=== PATIENT | female | born 1970 | race Caucasian/White ===

== ENCOUNTER 2016-11-15 15:29 | Emergency (ER) | payer MEDICAID, OTHER ==
[2016-11-15 15:38] VITALS: RESP 18; TEMP 98; O2SAT 97
--- NOTE | 2016-11-15 15:55 | EDPHY ---
H & P Stated Complaint: pt would like RX refil of imatrex for AGUSTIN that started this am HPI/ROS: CHIEF COMPLAINT: Migraine headache HISTORY OF PRESENT ILLNESS: This is a generally healthy 45-year-old female with a history of migraine headaches. No recent change in her migraines. She has been evaluated for them in the past, including brain MRI. She takes Imitrex orally and this is usually sufficient treatment. However, she ran out of her Imitrex so has been unable to take any. She reports photophobia. She has nausea but no vomiting. She has some mild left facial numbness that is typical for her with her headaches. The pain begins in her neck and radiates around the left side of her head. The pain is dull. She has not had fever. There is nothing unusual about this headache. REVIEW OF SYSTEMS: A ten point review of systems was performed and is negative with the exception of the items mentioned in the HPI. Source: Patient Exam Limitations: No limitations - Personal History LMP (Females 10-55): Now Current Tetanus Diphtheria and Acellular Pertussis (TDAP): Yes - Medical/Surgical History Hx Asthma: No Hx Chronic Respiratory Disease: No Hx Diabetes: No Hx Cardiac Disease: No Hx Renal Disease: No Hx Cirrhosis: No Hx Alcoholism: No Hx HIV/AIDS: No Hx Splenectomy or Spleen Trauma: No Other PMH: migraines, also being tested for ankylosing spondylosis, - Family History Significant Family History: No pertinent family hx - Social History Additional Social History: She does not use tobacco products. She does not drink alcohol. She has a 4- year-old. - Physical Exam Exam: General Appearance: Alert. Vital signs reviewed. Eyes: Pupils equal and round, no conjunctival injection, no discharge. Anicteric. ENT, Mouth: Mucous membranes are moist, no oropharyngeal erythema or edema. Neck: No lymphadenopathy, supple. Respiratory: Lungs are clear to auscultation; no wheezes, rales, or rhonchi. Cardiovascular: Regular rate and rhythm; no murmur, rub, or gallop. Gastrointestinal: Abdomen is soft and nontender, no masses or organomegaly, bowel sounds normal. Skin: Warm and dry, no rashes on exposed skin, normal color. Back: Nontender to palpation over the thoracolumbar spine. No CVAT. Extremities: No lower extremity edema, no calf tenderness or swelling. Neurological: Alert and oriented. Moving all four extremities easily and equally. Cranial nerves II through XII are examined and are intact with the exception of slight decrease in light touch over the left face (visual acuity not tested). Strength is 5 over 5 bilaterally with testing of all major motor groups. Sensation is intact to light touch over all 4 extremities. Deep tendon reflexes are 2+ in the biceps and knees bilaterally. Gait is normal. Psychiatric: Normal affect. Constitutional: Initial Vital Signs Temperature (C) 36.6 C 11/15/16 15:36 Heart Rate 78 11/15/16 15:36 Respiratory Rate 18 11/15/16 15:36 Blood Pressure 122/89 H 11/15/16 15:36 O2 Sat (%) 97 11/15/16 15:36 O2 Delivery Mode Room Air Allergies/Adverse Reactions: Sulfa (Sulfonamide Antibiotics) Allergy (Verified 08/24/13 22:24) Home Medications: Medication Instructions Recorded Cymbalta 08/24/13 Imitrex 11/15/16 Sumatriptan Succinate [Imitrex] 100 mg PO DAILY PRN #20 tablet 11/15/16 Medical Decision Making ED Course/Re-evaluation: 45-year-old with migraine headache that is typical for her. She usually takes Imitrex but has run out of this medication. She will be given a dose of Imitrex 6 mg subcutaneously and also Zofran 0DT in the emergency department. A prescription will be provided. She does not wish or require further treatment in the department. She is comfortable returning home. Differential Diagnosis: Headache including but not limited to subarachnoid hemorrhage, migraine headache , tension headache and infectious causes such as meningitis, pharyngitis and sinusitis. - Data Points Medications Given: Discontinued Medications Ondansetron HCl (Zofran Odt) 4 mg PO EDNOW ONE Stop: 11/15/16 15:59 Last Admin: 11/15/16 16:09 Dose: 4 mg Sumatriptan Succinate (Imitrex) 100 mg PO ONCE ONE Stop: 11/15/16 15:59 Last Admin: 11/15/16 16:09 Dose: Not Given Sumatriptan Succinate (Imitrex Sc Injection) 6 mg SC EDNOW ONE Stop: 11/15/16 16:09 Last Admin: 11/15/16 16:16 Dose: 6 mg Departure - Departure Disposition: Home, Routine, Self-Care Clinical Impression: Migraine Qualifiers: Migraine type: without aura Status migrainosus presence: without status migrainosus Intractability: not intractable Qualified Code(s): G43.009 - Migraine without aura, not intractable, without status migrainosus Condition: Good Instructions: Migraine Headache (ED) Referrals: Elke Sims MD [Primary Care Provider] - As per Instructions Prescriptions: Sumatriptan Succinate [Imitrex] 100 mg PO DAILY PRN #20 tablet PRN Reason: Headache
[2016-11-15] MEDS ORDERED: SUMAtriptan 50 MG TAB PO ONE (15:58)
[2016-11-15] MEDS ORDERED: ONDANSETRON DISINTEGRATING 4 MG TAB PO ONE (15:58)
[2016-11-15] MEDS ORDERED: SUMAtriptan 6 MG/0.5 ML VIAL SC ONE (16:08)
[2016-11-15 16:56] VITALS: BP 124/62; PULSE 71
== END 2016-11-15 16:55 | disposition home or self-care (01) ==
LOC: CED 15:29
DX: G43.009 Migraine without aura, not intractable, without status migrainosus (principal)
CPT/HCPCS: J3030

== ENCOUNTER 2017-01-17 21:12 | Emergency (ER) | payer MEDICAID ==
[2017-01-17 21:37] VITALS: BP 134/81; PULSE 80; RESP 16; TEMP 97.9; O2SAT 97
--- NOTE | 2017-01-17 21:45 | EDPHY ---
H & P Time Seen by Provider: 01/17/17 21:20 HPI/ROS: CHIEF COMPLAINT: Coughing at night HISTORY OF PRESENT ILLNESS: Patient has been sick for the last 10 days after spending time with her son's girlfriend who returned from travel to [place] with a similar illness. Initially she had sneezing runny nose sore throat fever and malaise as well as a nonproductive cough. She said she felt like she was getting better for about a week and then over the last 2 days she has been taking Aleve having nausea, coughing at night and not sleeping, and just feeling very tired like her legs are very heavy. She feels exhausted and thinks she is not getting better. REVIEW OF SYSTEMS: Eye: no change in vision ENT: Slight sore throat and slight ear pressure Cardiac: no chest pain or syncope Pulmonary: HPI Abdomen: no vomiting, diarrhea, abdominal pain Musculoskeletal: no back pain, a little bit of neck stiffness Skin: no rash Neuro: no headache Constitutional: Subjective fevers earlier but not now : no urinary symptoms A comprehensive 10 point review of systems is otherwise negative aside from elements mentioned in the history of present illness. PAST MEDICAL HISTORY: Migraine headaches Social history: Works as a therapist. No travel or immobilization. General Appearance: Alert and conversant, cooperative. Eyes: No scleral icterus. ENT, Mouth: Normal mucous membranes. Normal tympanic membranes bilaterally. Respiratory: Normal respiratory effort, breath sounds equal, lungs are clear to auscultation. No rales or rhonchi. Cardiovascular: Regular rate and rhythm. No murmur. Gastrointestinal: Abdomen is soft and non tender. Neurological: Alert and oriented x3. Normally conversant. Face symmetric, normal movement and sensation in all extremities. Skin: Warm and dry, no rashes. Musculoskeletal: Normal range of motion of the neck, no meningeal signs. No calf tenderness. Psychiatric: Not agitated. Emergency Department course/MDM: Patient presents with what sounds like a viral upper respiratory infection. She does not have red flags to suggest she is at high risk for serious bacterial illness or pulmonary embolism or pneumonia. Certainly sounds like she has not been sleeping very much for the last 2 days and a lot of her symptoms could be due to the duration of her illness as well as not sleeping. We talked about [id number] strategies for addressing her nighttime cough as currently her medications include Mucinex and Sudafed. Smoking Status: Never smoked Constitutional: Initial Vital Signs Temperature (C) 36.6 C 01/17/17 21:15 Heart Rate 80 01/17/17 21:15 Respiratory Rate 16 01/17/17 21:15 Blood Pressure 134/81 H 01/17/17 21:15 O2 Sat (%) 97 01/17/17 21:15 O2 Delivery Mode Room Air Allergies/Adverse Reactions: Sulfa (Sulfonamide Antibiotics) Allergy (Verified 01/17/17 21:31) Home Medications: Medication Instructions Recorded Cymbalta 08/24/13 Imitrex 11/15/16 Sumatriptan Succinate [Imitrex] 100 mg PO DAILY PRN #20 tablet 11/15/16 Benzonatate [Tessalon Pearles (RX)] 100 mg PO Q8 PRN #15 cap 01/17/17 MDM/Departure - Depart Disposition: Home, Routine, Self-Care Clinical Impression: Upper respiratory infection Qualifiers: URI type: unspecified viral URI Qualified Code(s): J06.9 - Acute upper respiratory infection, unspecified Condition: Good Instructions: Upper Respiratory Infection (ED) Additional Instructions: Cough medication at night as we have discussed. Prescriptions: Benzonatate [Tessalon Pearles (RX)] 100 mg PO Q8 PRN #15 cap PRN Reason: Cough, Moderate Referrals: Elke Sims MD [Primary Care Provider] - As per Instructions
== END 2017-01-17 21:55 | disposition home or self-care (01) ==
LOC: CED 21:12
DX: J06.9 Acute upper respiratory infection, unspecified (principal)

== ENCOUNTER 2017-10-02 12:56 | Emergency (ER) | payer SELFPAY ==
[2017-10-02] MEDS ORDERED: IBUPROFEN 600 MG TAB PO ONE (13:09)
[2017-10-02] MEDS ORDERED: LIDOCAINE 4%/MENTHOL 1% PATCH TD ONE (13:30)
--- NOTE | 2017-10-02 13:30 | EDPHY ---
H & P Stated Complaint: R rib and R back pain after mechanical fall. Time Seen by Provider: 10/02/17 12:57 HPI/ROS: Chief Complaint: Right rib pain HPI: 36-year-old woman had a mechanical fall 5 days ago which she slipped and fell while running after dog. She landed onto her right hand side. Initially had some shoulder pain which has since improved. Over the course of the last couple days she has been having worsening right-sided back pain. This is worsened with movement or with taking a deep breath. She has been taking ibuprofen and acetaminophen with little relief. No fevers or chills. No cough. No numbness or weakness. No difficulty ambulating. ROS: 10 point Review of Systems is negative except as noted in the HPI. PMH: Migraines Social History: No smoking, no alcohol, no recreational drug use Family History: non-contributory Physical Exam: Gen: Awake, Alert, No Distress HEENT: Nose: no rhinorrhea Eyes: PERRLA, EOMI Mouth: Moist mucosa Neck: Supple, no JVD Chest: No lateral chest wall tenderness or deformity, lungs clear to auscultation Heart: S1, S2 normal, no murmur Abd: Soft, non-tender, no guarding Back: Moderate right thoracic paraspinal soft tissue tenderness with muscle spasm, no midline tenderness Ext: no edema, non-tender Skin: no rash Neuro: CN II-XII intact, Sensation grossly intact, Strength 5/5 in bilateral upper and lower extremities - Personal History LMP (Females 10-55): 15-21 Days Ago Current Tetanus Diphtheria and Acellular Pertussis (TDAP): Yes Tetanus Vaccine Date: within 10 years - Medical/Surgical History Hx Asthma: No Hx Chronic Respiratory Disease: No Hx Diabetes: No Hx Cardiac Disease: No Hx Renal Disease: No Hx Cirrhosis: No Hx Alcoholism: No Hx HIV/AIDS: No Hx Splenectomy or Spleen Trauma: No Other PMH: migraines. ANXIETY. T10 or T12 fracture. Low bone density - Social History Smoking Status: Never smoked Constitutional: Initial Vital Signs Temperature (C) 36.5 C 10/02/17 12:59 Heart Rate 73 10/02/17 12:59 Respiratory Rate 16 10/02/17 12:59 Blood Pressure 163/95 H 10/02/17 12:59 O2 Sat (%) 99 10/02/17 12:59 O2 Delivery Mode Room Air Allergies/Adverse Reactions: Sulfa (Sulfonamide Antibiotics) Allergy (Verified 10/02/17 13:07) Pt reports rash, chest tightness Home Medications: Medication Instructions Recorded Cymbalta 08/24/13 Benzonatate [Tessalon Pearles (RX)] 100 mg PO TID PRN #15 cap 10/02/17 Hydrocodone/Acetaminophen 1 - 2 each PO Q4-6PRN PRN #10 10/02/17 [Hydrocodon-Acetaminophen 5-325] tablet Klonopin 10/02/17 Sumatriptan Succinate [Imitrex] 10/02/17 Medical Decision Making - Diagnostics Imaging Results: Imaging Impressions Chest X-Ray 10/02/17 13:20 Impression: There is no acute or subacute abnormality identified. Imaging: I viewed and interpreted images myself ED Course/Re-evaluation: 46-year-old woman with likely thoracic muscle strain. Neurologically intact. No acute process on x-ray. Will discharge with analgesia, topical patch, follow up with primary care physician. - Data Points Medications Given: Discontinued Medications Ibuprofen (Motrin) 600 mg PO EDNOW ONE Stop: 10/02/17 13:10 Last Admin: 10/02/17 13:20 Dose: 600 mg Miscellaneous Medication (Icy Hot Lidocaine/Menthol 4%/1% Patch) 1 patch TD EDNOW ONE Stop: 10/02/17 13:31 Last Admin: 10/02/17 13:35 Dose: 1 patch Departure - Departure Disposition: Home, Routine, Self-Care Clinical Impression: Strain of thoracic region Condition: Good Instructions: Lower Back Exercises (ED), Thoracic Back Strain (ED) Additional Instructions: Take ibuprofen, 600 mg, 3 times a day. You may also take acetaminophen, 1000 mg every 6 hours. You may replace the Lidoderm patch every 24 hr, these are available over-the- counter. You may take hydrocodone with acetaminophen as needed for breakthrough pain. Do not take acetaminophen if you are taking the hydrocodone. Make sure to remain active. Did do not lay in bed or sit in a chair for long periods. It is important to remain active and keep your back moving in order to improve. Please see the attached back exercise instructions. Follow up with primary care physician in 4-5 days if symptoms are not improving. Referrals: Elke Sims MD [Primary Care Provider] - As per Instructions Prescriptions: Benzonatate [Tessalon Pearles (RX)] 100 mg PO TID PRN #15 cap PRN Reason: Cough, Moderate Hydrocodone/Acetaminophen [Hydrocodon-Acetaminophen 5-325] 1 - 2 each PO Q4- 6PRN PRN #10 tablet PRN Reason: Pain, Severe
[2017-10-02 14:29] VITALS: BP 158/87
== END 2017-10-02 14:24 | disposition home or self-care (01) ==
LOC: CED 12:56
DX: S29.012A Strain of muscle and tendon of back wall of thorax, initial encounter (principal); W01.0XXA Fall on same level from slipping, tripping and stumbling without subsequent striking against object, initial encounter; Y99.8 Other external cause status; Y93.02 Activity, running
CPT/HCPCS: 71046-PO